=== PATIENT | female | born 1970 | race Caucasian/White ===

== ENCOUNTER 2016-04-18 14:46 | Emergency (ER) | payer MEDICAID ==
[~2016-04-18] VITALS: Wt 98.0 kg
[~2016-04-18 14:46] MED LIST: GUAI100G
[2016-04-18] MEDS ORDERED: AZIT250T94 PO (15:07)
[2016-04-18] MEDS ORDERED: IBUP-1542 PO (15:07)
[2016-04-18] MEDS ORDERED: D-ME473S18 PO (15:07)
--- NOTE | 2016-04-18 15:11 | ERD ---
ER Documentation Chief Complaint Date/Time DATE: 04/18/16 TIME: 15:10 Chief Complaint FEVER, COUGH, CONGESTION, BODYACHES HPI This 36-year-old female presents with fever, cough and congestion for the last 3 days. She has had a cough congestion for 3 weeks but developed fever and worsening symptoms over the last 3 days. She has vomiting, chest pain, neck stiffness, rashes. ROS All systems reviewed and are negative except as per history of present illness. Medications Home Meds Active Scripts Ibuprofen* (Motrin*) 600 Mg Tab, 600 MG PO Q6, #15 TAB Prov:NUBIA BLISS MD 04/18/16 Dextromethorphan Hb-Promethazine Hcl (Promethazine DM Syrup) 473 Ml Syrup, 5 ML PO Q6H Y for COUGH, #4 OZ Prov:NUBIA BLISS MD 04/18/16 Azithromycin* (Zithromax*) 250 Mg Tablet, 250 MG PO .ZPACK DIRECTED, #6 TAB TAKE 500 MG (2 TABS) THE FIRST DAY THEN 250 MG (1 TAB) DAYS 2-5 Prov:NUBIA BLISS MD 04/18/16 Reported Medications Guaifenesin (Mucinex) 100 Mg/Box Gran.pack 08/25/10 Allergies Allergies: Coded Allergies: No Known Allergy (Unverified , 12/24/10) PMhx/Soc History of Surgery: No Anesthesia Reaction: No Hx Neurological Disorder: No Hx Respiratory Disorders: No Hx Cardiac Disorders: No Hx Psychiatric Problems: No Hx Miscellaneous Medical Probl: No (NO MEDICAL OR SURGICAL HISTORY) Hx Alcohol Use: No Hx Substance Use: No Hx Tobacco Use: No Physical Exam Vitals Vital Signs Date Time Temp Pulse Resp B/P Pulse Ox O2 Delivery O2 Flow Rate FiO2 04/18/16 14:47 100.5 102 18 132/92 97 Physical Exam Const: [] Alert, [id number]. Head: Atraumatic Eyes: Normal Conjunctiva ENT: Normal External Ears, Nose and Mouth. Left TM with redness and decreased light reflex. Clear nasal discharge and 3+ nasal congestion. Neck: Full range of motion..~ No meningismus. Resp: Clear to auscultation bilaterally. Very slight increased expiratory phase. No rales or wheezing at rest appreciated. Cardio: Regular rate and rhythm, no murmurs Abd: Soft, non tender, non distended. Normal bowel sounds Skin: No petechiae or rashes Back: No midline or flank tenderness Ext: No cyanosis, or edema Neur: Awake and alert Psych: Normal Mood and Affect Results 24 hrs Current Medications Medications (Trade) Dose Ordered Sig/Vidal Route PRN Reason Start Time Stop Time Status Last Admin Dose Admin Prednisone (Prednisone) 40 mg ONCE ONCE PO 04/18/16 15:30 04/18/16 15:31 Ibuprofen (Motrin) 600 mg ONCE ONCE PO 04/18/16 15:30 04/18/16 15:31 Procedures/MDM Patient is given ibuprofen 600 mg of mouth and prednisone 40 mg of mouth. Patient has acute URI symptoms worsening over last 3 weeks with signs of possible sinusitis or otitis media. She will treated with Zithromax, promethazine and ibuprofen. There is no evidence of hypoxemia or respiratory distress. The patient was stable with no new complaints during the ER course. Clinically, there is no current evidence to suggest meningitis, sepsis, acute abdomen, pneumonia, acute coronary syndrome, pulmonary embolism, or any other emergent condition appearing to require further evaluation or hospitalization. The patient should certainly return for any new or worsening symptoms per the aftercare instructions. They should otherwise follow-up with her primary care doctor for reevaluation this week. Departure Diagnosis: Primary Impression: Upper respiratory infection URI type: unspecified URI Qualified Code: J06.9 - Upper respiratory tract infection, unspecified type Condition: Stable Patient Instructions: Acute Bronchitis Additional Instructions: Cheque otro vez con gaytan doctor primario en el proximo ambriz or regresa para mas o nueva simptomas. NUBIA BLISS MD Apr 18, 2016 15:11
[2016-04-18] MEDS ORDERED: predniSONE 20 MG TAB PO ONE (15:30)
[2016-04-18] MEDS ORDERED: IBUPROFEN 600 MG TAB PO ONE (15:30)
== END 2016-04-18 15:38 | disposition home or self-care (01) ==
LOC: FTE 14:46
DX: J06.9 Acute upper respiratory infection, unspecified (principal)
CPT/HCPCS: J7512; Z7502; Z7610; 99284

== ENCOUNTER 2016-07-03 12:58 | Emergency (ER) | payer SELFPAY ==
[~2016-07-03] VITALS: Wt 82.0 kg
[~2016-07-03 12:58] MED LIST changes: +AZIT250T94 PO; +D-ME473S18 PO; +IBUP-1542 PO
[2016-07-03] MEDS ORDERED: AZIT250T94 PO (14:22)
[2016-07-03] MEDS ORDERED: ALBU8.5H3 INH (14:23)
[2016-07-03] MEDS ORDERED: GUAI-637 PO (14:23)
--- NOTE | 2016-07-03 14:27 | ERD ---
ER Documentation Chief Complaint Date/Time DATE: 07/03/16 TIME: 1358 Chief Complaint CHEST PAIN WITH SOB FOR THE PAST 2 DAYS. NO N/V. NO DIAPHORESIS NOTED HPI 46-year-old female presents the emergency room complaining of cough and congestion for the last 2 days. Patient states that she began having upper respiratory nasal congestion and feeling congested in her chest. She describes non-purulent sputum production with no hemoptysis. She reports no fevers, chills, weight loss, hemoptysis. ROS All systems reviewed and are negative except as per history of present illness. Medications Home Meds Active Scripts Guaifenesin* (Robitussin*) 100 Mg/5 Ml Syrup, 100 MG PO Q6H Y for COUGH for 7 Days, ML Prov:PREM RUSSELL 07/03/16 Albuterol Sulfate* (Proair HFA*) 8.5 Gm Hfa.aer.ad, 2 PUFF INH Q4, #1 INHALER Prov:PREM RUSSELL 07/03/16 Azithromycin* (Zithromax*) 250 Mg Tablet, 250 MG PO .ZPACK DIRECTED, #6 TAB TAKE 500 MG (2 TABS) THE FIRST DAY THEN 250 MG (1 TAB) DAYS 2-5 Prov:PREM RUSSELL 07/03/16 Ibuprofen* (Motrin*) 600 Mg Tab, 600 MG PO Q6, #15 TAB Prov:NUBIA BLISS MD 04/18/16 Dextromethorphan Hb-Promethazine Hcl (Promethazine DM Syrup) 473 Ml Syrup, 5 ML PO Q6H Y for COUGH, #4 OZ Prov:NUBIA BLISS MD 04/18/16 Azithromycin* (Zithromax*) 250 Mg Tablet, 250 MG PO .ZPACK DIRECTED, #6 TAB TAKE 500 MG (2 TABS) THE FIRST DAY THEN 250 MG (1 TAB) DAYS 2-5 Prov:NUBIA BLISS MD 04/18/16 Reported Medications Guaifenesin (Mucinex) 100 Mg/Box Gran.pack 08/25/10 Allergies Allergies: Coded Allergies: No Known Allergy (Unverified , 12/24/10) PMhx/Soc History of Surgery: No Anesthesia Reaction: No Hx Neurological Disorder: No Hx Respiratory Disorders: No Hx Cardiac Disorders: No Hx Psychiatric Problems: No Hx Miscellaneous Medical Probl: No Hx Alcohol Use: No Hx Substance Use: No Hx Tobacco Use: No Smoking Status: Never smoker FmHx Noncontributory for chief complaint Physical Exam Vitals Vital Signs Date Time Temp Pulse Resp B/P Pulse Ox O2 Delivery O2 Flow Rate FiO2 07/03/16 13:08 98.5 94 20 134/80 98 Physical Exam GENERAL: The patient is well developed and appropriate for usual state of health in no apparent distress HEENT: Pupils equal, round, and reactive to light. EOMI. There is no scleral icterus. NECK: C-spine is soft and supple, there is no meningismus. There is no cervical lymphadenopathy. LUNGS: Clear to auscultation bilaterally. There are no rales, wheezes or rhonchi. HEART: Regular rate and rhythm, no murmurs, clicks, rubs or gallops. Procedures/MDM Patient was taken to a room, seen and examined. Twelve-lead EKG interpreted by myself: Rate/rhythm: Normal sinus rhythm no ectopy [place]/intervals: Normal Ischemia: No ST elevation, ST depression, T wave inversion Impression: Nonischemic EKG 1 view CXR reviewed by myself: No bony or soft tissue abnormalities Cardiac silhouette normal Mediastinum normal Lung [place] normal without infiltrate, mass, or CHF Pleura normal Impression: normal CXR Medical decision makin-year-old female presents the emergency department with congestion. Her x-ray has ruled out pneumonia. She has no evidence of cardiac or bronchospastic concerns. Patient appears to be clinically nontoxic and well-appearing and seems appropriate for outpatient care. Departure Diagnosis: Primary Impression: Bronchitis Condition: Stable Additional Instructions: See your doctor for follow-up as discussed. Take a copy of your test results, if appropriate, to this follow-up visit. See your doctor or return here if your symptoms do not improve as expected. At any time, please return to the emergency department for any change or worsening in her symptoms. PREM RUSSELL July 03, 2016 14:27
[2016-07-03 14:29] VITALS: BP 138/78; PULSE 88; RESP 16; TEMP 98.4
--- NOTE | 2016-07-03 14:29 | RADRPT ---
PROCEDURE: XR Chest. CLINICAL INDICATION: chest pain TECHNIQUE: Single AP view of the chest were obtained COMPARISON: None FINDINGS: The heart and mediastinum are within normal limits. The pulmonary vasculature are unremarkable. The aorta is unremarkable. There is no lung consolidation, pleural effusion or pneumothorax. There i s no acute osseous abnormality. IMPRESSION: No acute disease. RPTAT: AA .Marcelina Rico MD, Date Time Electronically viewed and signed by .Marcelina Rico MD, MD on 07/03/2016 14:29 .J/
== END 2016-07-03 14:34 | disposition home or self-care (01) ==
LOC: E/R 12:58
DX: J20.9 Acute bronchitis, unspecified (principal)
CPT/HCPCS: 71010; 93005